=== PATIENT | male | born 1950 | race Caucasian/White ===

== ENCOUNTER 2021-07-18 06:11 | Day surgery (SDC) | payer MEDICARE, OTHER, SELFPAY ==
[2021-07-12 10:51] VITALS: BMI 32.3
--- NOTE | 2021-07-17 10:15 | P.CONAN_ITS ---
Documented by User: Mary Pool NP 07/17/21 10:15 HPI - Anesthesia Eval Consult details Narrative: 71yo M for ?Col[facility] Past Medical History Medical History Hernia Hyperlipidemia Surgical History Surgical History History of knee replacement, total Hx of colonoscopy Social History Social History Patient Tobacco Use Status: Never used Tobacco Are you DNR?: No Advance Directives: No Advance Directives Information Provided: Yes Meds Allergies Allergy/AdvReac Type Severity Reaction Status Date / Time No Known Allergies Allergy Verified 07/18/21 06:09 Home Medications Medication Instructions Recorded Confirmed Last Taken Type atorvastatin 10 mg 1 tab PO DAILY 07/12/21 07/12/21 Unknown History tablet Exam Exam Date and Time: July 17, 2021 1015 Height,Weight and Vital Signs: Height 5 ft 6 in Weight 90.718 kg Assessment and Plan Assessment Anesthesia Assessment: Chart Reviewed Documented by User: Vidya Orosco MD 07/18/21 07:25 [facility] Past Medical History Medical History Hernia Hyperlipidemia Functional capacity: independent ambulation Family History Family history of problems with anesthesia: No Surgical History Surgical History History of knee replacement, total Hx of colonoscopy History of Problems with Anesthesia: No Social History Social History Patient Tobacco Use Status: Never used Tobacco Are you DNR?: No Advance Directives: No Advance Directives Information Provided: Yes Meds Allergies Allergy/AdvReac Type Severity Reaction Status Date / Time No Known Allergies Allergy Verified 07/18/21 06:09 Home Medications Medication Instructions Recorded Confirmed Last Taken Type atorvastatin 10 mg 1 tab PO DAILY 07/12/21 07/12/21 Unknown History tablet Exam Airway Mallampati Class: II TM Dist: >3cm Neck ROM: Full Heart: RRR Lungs: CTA Assessment and Plan Final Anesthetic Review Family History of Problems with Anesthesia: No History of Problems with Anesthesia: No ASA Class: II Final Preanesthetic Review: No Changes in Pt Med Stat, Consent Obtained/Reviewed and Anes Risks/Benef Reviewed Patient Risk: Low Procedure Risk: Low Anesthetic Plan Anesthetic Plan: MAC: Disposition: Standard PACU
[2021-07-18 06:29] VITALS: BP 185/97; PULSE 65; RESP 18; TEMP 36.6; O2SAT 98
[2021-07-18] MEDS: Lactated Ringers 1,000 ML 100 ML IVCONT (06:50)
[2021-07-18 07:16] VITALS: BP 160/72
[2021-07-18 08:28] VITALS: BP 123/87; PULSE 75; RESP 16; TEMP 36.4; O2SAT 95
--- NOTE | 2021-07-18 08:30 | PM.OP ---
Brief Operative Note Date of Service: 07/18/21 Pre-op diagnosis: Screening Post-op diagnosis: other (Diverticulosis) Procedure: Colonoscopy to the cecum and TI Surgeon: Luther Farmer Anesthesia: MAC Was an Medical Record Librarians Teacher used for this Procedure?: No Estimated blood loss (mL): 0 Pathology: none sent Condition: stable Disposition: PACU
--- NOTE | 2021-07-18 08:52 | HO.POSTANES ---
Post Anesthesia Evaluation Post Anesthesia Evaluation Vital Signs: Vital Signs Temp Pulse Resp BP Pulse Ox 07/18/21 08:28 97.5 F 75 16 123/87 95 07/18/21 07:16 160/72 H 07/18/21 06:29 98 F 65 18 185/97 H 98 Anesthesia: Monitored Mental Status: Awake Pain Control: Satisfactory Nausea/Vomiting: None Hydration: Adequate Anesthesia-Related Issues: No Anes. Related Issues
--- NOTE | 2021-07-18 08:58 | OP_ITS ---
SURGEON: Luther Farmer MD INDICATIONS: The patient presents for evaluation of colorectal cancer screening. Full consent has been obtained from him for this, including risks of bleeding and perforation. PREOPERATIVE DIAGNOSIS: Colorectal cancer screening. POSTOPERATIVE DIAGNOSIS: PROCEDURE PERFORMED: Colonoscopy to cecum and terminal ileum. ESTIMATED BLOOD LOSS: COMPLICATIONS: ANESTHESIA: Preoperative medication used, monitored anesthesia care. ASSISTANTS: SPECIMENS: POSTOPERATIVE DIAGNOSES: Colorectal cancer screening, diverticulosis, and internal hemorrhoids. DESCRIPTION OF PROCEDURE: The patient was placed in the left lateral decubitus position. The digital rectal exam revealed no abnormalities. The Olympus video pediatric colonoscope was entered into the rectum and advanced easily to the cecum. Once in the cecum, I did identify normal-appearing cecal pouch with appendiceal orifice and a normal-appearing ileocecal valve. The terminal ileum was cannulated and appeared normal. The scope was withdrawn back in the colon. The entire cecum and ileocecal valve appeared normal. The scope was slowly withdrawn assessing all mucosal surfaces carefully. Preparation was excellent. I did not visualize any sign of polyps, colitis, or angiodysplasia. There was a moderate amount of sigmoid diverticulosis. In the rectum, the scope was retroflexed visualizing internal hemorrhoids, but no other pathology. The rectal mucosa appeared normal. The scope was straightened and withdrawn from the patient. He tolerated the procedure well and was returned to the recovery area in stable condition. IMPRESSION: 1. Diverticulosis. 2. Internal hemorrhoids. PLAN: Given his negative exam, 2 previously negative colonoscopies, and no first-degree relatives with colorectal cancer, I do not think he will need any further colonoscopies in the future since his next one would be due in 10 years and he would already be in his 80s at that point. As such, he will see me on a p.r.n. basis. MD LEXIE Izquierdo/RIAZ / [id number]
== END 2021-07-18 09:05 | disposition home or self-care (01) ==
PROVIDERS: PCP Internal Medicine; Visit Provider Internal Medicine
PROC: 0DJD8ZZ Inspection of Lower Intestinal Tract, Via Natural or Artificial Opening Endoscopic (ICD-10-PCS; CPT 45378; principal; 2021-07-18 07:30)
DX: Z12.11 Encounter for screening for malignant neoplasm of colon (principal); K57.30 Diverticulosis of large intestine without perforation or abscess without bleeding; K64.8 Other hemorrhoids; E78.5 Hyperlipidemia, unspecified; Z79.899 Other long term (current) drug therapy; Z96.653 Presence of artificial knee joint, bilateral
CPT/HCPCS: G0121

== ENCOUNTER 2021-12-31 10:27 | Outpatient (REF) | payer MEDICARE, OTHER, SELFPAY ==
[2021-12-31 11:01] LABS: COVID-19 Test Negative (Negative); IDNOW Serial# 16C4AD1C
== END 2021-12-31 10:28 | disposition home or self-care (01) ==
LOC: HO.LAB 10:27
PROVIDERS: Visit Provider Internal Medicine
DX: Z20.822 Contact with and (suspected) exposure to COVID-19 (principal)
CPT/HCPCS: 87635; C9803

== ENCOUNTER 2022-01-10 08:28 | Outpatient (REF) | payer MEDICARE, OTHER, SELFPAY ==
[2022-01-10 09:18] LABS: COVID-19 Test Negative (Negative); IDNOW Serial# 08D9AD1C
== END 2022-01-10 08:29 | disposition home or self-care (01) ==
LOC: HO.LAB 08:28
PROVIDERS: Visit Provider Internal Medicine
DX: Z20.822 Contact with and (suspected) exposure to COVID-19 (principal)
CPT/HCPCS: 87635; C9803

== ENCOUNTER 2022-09-28 07:00 | Observation (INO) | payer MEDICARE, OTHER, SELFPAY ==
--- NOTE | ~2022-09-28 | CT_ITS ---
EXAMINATION: CT ABDOMEN, AND PELVIS WITH AND WITHOUT INTRAVENOUS CONTRAST CLINICAL INFORMATION: Abdominal pain. Rectal bleeding. COMPARISON: None TECHNIQUE: Multidetector volumetric CT imaging of the abdomen, and pelvis was obtained before and after the administration of 80 mL of Omnipaque 350 intravenous contrast without immediate adverse reactions. Axial MIP volume rendering provided. Sagittal and coronal reformatted images were obtained. This CT examination was performed using dose optimization techniques as appropriate, variously including the following: *Automated exposure control *Adjustment of mA and/or kV according to patient size (this includes techniques or standardized protocols for targeted exams where dose is matched to indication/reason for exam; i.e. extremities or head) *Use of iterative reconstruction technique DLP: 1598 mGy-cm FINDINGS: LUNG BASES: The lung bases appear clear, with no evidence of inflammation or nodules. Significant coronary arterial calcification. Heart normal in size. No pericardial effusion. LIVER, GALLBLADDER, AND BILIARY TREE: Subcentimeter segment 4 benign simple hepatic cyst. The liver otherwise appears unremarkable in size, shape, and attenuation. No suspicious focal hepatic lesion or biliary ductal dilatation is appreciated. Unremarkable appearance of the gallbladder. PANCREAS: Unremarkable SPLEEN: Unremarkable ADRENAL GLANDS: Unremarkable KIDNEYS AND URETERS: The kidneys appear unremarkable in size, shape, and attenuation. No hydronephrosis, hydroureter, or calculi seen. BLADDER: Question mild muscular hypertrophy. GASTROINTESTINAL TRACT: Stomach appears unremarkable. Approximately 1.5 cm diverticulum involving the second portion of the duodenum, without evidence of associated inflammation. Question mild diffuse rectal wall thickening, mild induration of surrounding fat, and mild hypervascularity of the rectal mucosa. Extensive, diffuse colonic diverticulosis without evidence of diverticulitis. Normal-appearing distal ileum and vermiform appendix. ABDOMINAL WALL: No significant hernia is appreciated. LYMPH NODES: No evidence of adenopathy by size criteria. 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 PELVIC VISCERA: Mildly enlarged prostate. Prostatic fiduciary markers. OSSEOUS STRUCTURES: Degenerative changes of the spine. CT/CT gi bleed abd pel wo/w IVcon IMPRESSION: Question mild diffuse rectal wall thickening, mild induration of surrounding fat, and mild hypervascularity of the rectal mucosa. Cannot exclude proctitis. Extensive, diffuse colonic diverticulosis without evidence of diverticulitis. Mildly enlarged prostate. Prostatic fiduciary markers. Additional findings, as above.
[2022-09-28 07:30] VITALS: BP 170/85; PULSE 80; RESP 18; TEMP 36.1; O2SAT 98; BMI 31.4
--- NOTE | 2022-09-28 08:21 | ED.BACK ---
HPI - Back Pain/Injury General Chief Complaint: Back Pain/Injury Stated Complaint: pain lower back Time Seen by Provider: 09/28/22 08:10 Source: patient Mode of arrival: ambulatory Limitations: no limitations History of Present Illness HPI Narrative: 72 yo male with history of HTN, HLD, bladder cancer s/p radiation 10/05 at [facility] (12 weeks-Dr Garcia) here with complaints of right sided flank pain x 3 weeks worsening over the last few days. Pain radiates to right side. Has noticed associated BRB in stool. Stool is soft. Has had some intermittent urinary urgency, diff urinating and one episode of hematuria which is resolved. No associated fever, vomiting, abdominal pain. No AC therapy use. Has been taking high dose ibuprofen x 2 weeks d/t hand pain/swelling. Last colonoscopy was 07/[address] Farmer which showed diverticulosis, internal hemorrhoids. Related Data Home Medications Medication Instructions Recorded Confirmed atorvastatin 10 mg tablet 1 tab PO DAILY 07/12/21 09/28/22 amlodipine 5 mg-benazepril 10 mg 1 cap PO DAILY 04/10/22 09/28/22 capsule multivitamin 1 tab PO DAILY 09/28/22 09/28/22 Allergies Allergy/AdvReac Type Severity Reaction Status Date / Time No Known Allergies Allergy Verified 09/28/22 07:29 Review of Systems Review of Systems: Yes all other systems are reviewed and are negative Constitutional: Constitutional: Reports no additional constitutional complaints, Denies body ache(s), Denies chills, Denies fever(s), Denies headache(s) and Denies weakness Eyes: Eyes: Reports no additional eye complaints and Denies change in vision ENT: Reports system reviewed and no additional complaints, except as documented, Denies dizziness, Denies headache(s), Denies nasal congestion, Denies nasal discharge and Denies neck pain Cardiovascular: Cardiovascular: Reports no additional cardiovascular complaints, Denies chest pain, Denies leg edema and Denies dyspnea Respiratory: Respiratory: Reports no additional respiratory complaints, Denies cough and Denies dyspnea Gastrointestinal: Gastrointestinal: Reports no additional gastrointestinal complaints, Denies abdominal pain, Reports hematochezia, Denies coffee ground emesis, Denies constipation, Denies diarrhea, Denies nausea, Denies vomiting and Denies hematemesis Genitourinary: Genitourinary: Denies urinary incontinence Musculoskeletal: Musculoskeletal: Reports no additional musculoskeletal complaints, Reports back pain, Denies arthralgias, Denies joint swelling, Denies neck pain, Denies numbness and Denies tingling Integumentary/Breasts: Skin/Breast: Reports system reviewed and no additional complaints, except as docu and Denies rash Neurologic: Reports system reviewed and no additional complaints, except as documented, Denies Abnormal speech present, Denies dizziness, Denies headache(s), Denies numbness, Denies tingling and Denies weakness PMFSH Past Medical History Attestation statement: The following information was validated with the patient. Source: old records reviewed and nursing notes reviewed Medical History (Updated 09/28/22 @ 12:13 by JADEN Bains) Hernia HTN (hypertension) Hyperlipidemia Prostate cancer Surgical History History of knee replacement, total Hx of colonoscopy Social History Social History Alcohol intake: current Alcohol intake frequency: 0-2 drinks per day Alcohol type: wine Patient Tobacco Use Status: Never used Tobacco Smoked in Last 30 Days: No Use of substances other than those prescribed or required for medical reasons: No Advance Directives: No Advance Directives Information Provided: Yes Nutrition Risks: No Nutritional Risk Physical Exam Vital Signs: Vital Signs: Last Vital Signs Temp 97.0 F 09/28/22 07:30 Pulse 68 09/28/22 12:07 Resp 16 09/28/22 12:07 BP 158/90 H 09/28/22 12:07 Pulse Ox 97 09/28/22 12:07 O2 Del Method Room Air 09/28/22 12:07 BMI result Body Mass Index 31.4 Const: General: cooperative, healthy appearing, comfortable and no acute distress Orientation/consciousness: patient oriented x3 Limitations: no limitations HEENT: Head: Yes normal to inspection Ears: hearing grossly normal bilaterally General nose exam: Normal external nose present Face and sinus: Yes normal facial exam Mouth: Normal oral and palatal mucosa present Throat: Yes posterior oropharynx normal Eyes: General: appearance normal, both eyes and all related structures Pupils: Equal, round and reactive pupils present Neck: Neck: Yes normal visual inspection Chest: Chest palpation & inspection: normal inspection of the chest Resp: Effort & Inspection: normal respiratory effort Auscultation: clear to auscultation bilaterally Cardio: Rate: regular rate Rhythm: regular rhythm Peripheral pulses: Peripheral pulses 2+ throughout GI: Inspection: Yes normal to inspection Palpation (GI): Soft to palpation and nontender Auscultation: normal bowel sounds Rectal Exam - Male: Yes visual inspection normal and Yes heme positive stool (maroon stool) : General: Yes no CVA tenderness Back/Spine/Pelvis: Other: TTP to right fnank and right mid abdomen with no reboud or guarding Back: no CVA tenderness Thoracic/Lumbar Spine: thoracic and lumbar spine normal to inspection Skin: General skin exam: no rashes or lesions noted Neuro: General: patient oriented x3, no focal motor deficits and normal sensation to monofilament Cranial nerves: Yes Equal, round and reactive pupils present Cognition (Neuro): normal cognition Speech: No Abnormal speech present Gait exam (Neuro): Normal gait present Motor exam (neuro): 5/5 motor strength present throughout Extrem: General: Yes normal to inspection Course Course Course Narrative: CT shows?Question mild diffuse rectal wall thickening, mild induration of surrounding fat, and mild hypervascularity of the rectal mucosa. Cannot exclude proctitis. ? Extensive, diffuse colonic diverticulosis without evidence of diverticulitis. ? Mildly enlarged prostate. Prostatic fiduciary markers. ? -hemoglobin is 11.5. Hematocrit 35.2. No previous available for review. UA is negative for infection. Likely radiation proctitis. Will discuss with GI. Medications Administered Generic Name Dose Route Start Last Admin Trade Name Freq PRN Reason Stop Dose Admin Amlodipine Besylate 5 mg 09/28/22 12:07 09/28/22 12:09 Amlodipine Besylate 5 Mg Tablet PO Not Given DAILY CASTILLO Lidocaine 1 patch 09/28/22 12:15 09/28/22 12:19 Lidocaine 4 % Patch Adh..Patch TRANSDERMA 1 patch DAILY CASTILLO Administration Protocol Lisinopril 10 mg 09/28/22 12:07 09/28/22 12:09 Lisinopril 10 Mg Tablet PO Not Given DAILY CASTILLO Discontinued Medications Generic Name Dose Route Start Last Admin Trade Name Freq PRN Reason Stop Dose Admin Iohexol 100 ml 09/28/22 09:36 09/28/22 09:36 Iohexol 350 Mg/Ml 100 Ml Infus..Btl IV 09/28/22 09:37 80 ml ONCE ONE Administration Medical Decision Making Medical Decision Making [facility] Narrative: 72 yo male with history of prostate cancer with 12 weeks of radiation here with complaints of 3 weeks of right sided back pain, rectal bleeding, intermittent urinary symptoms. On exam patient with TTP over right flank/pain with radiation to right mid abdomen. Rectal exam with maroon stool. Will need labs, UA, CT, will send occult stool Differential Diagnosis Differential Diagnoses: The differential diagnosis associated with the presentation includes GIB, radiation proctitis, divert, hemorrhoids Admission/Observation Consideration of admission/observation: Escalation of care including admission/observation considered need for emergent colonoscopy requiring admission Consult Healthcare Provider Management of the patient was discussed with: Superintendent Laundry CT is consistent with proctitis. Likely radiation proctitis. D/w with Dr Judd from GI with plans for scope tomorrow Lab Data [facility] Lab Attestation statement: I reviewed the patient's lab results. 09/28/22 08:35 09/28/22 08:35 Labs: Lab Results 09/28/22 09/28/22 09/28/22 Range/Units 08:35 08:35 08:35 WBC 4.9 (4.8-10.8) X10*3/uL RBC 3.89 L (4.60-5.80) X10*6/uL Hgb 11.9 L (14.0-18.0) g/dl Hct 35.2 L (42.0-52.0) % MCV 90.5 (80.0-98.0) fL MCH 30.6 (27.0-33.0) pg MCHC 33.8 (31.0-36.0) g/dl RDW 12.4 (11.0-16.0) % Plt Count 174 (160-400) X10*3/uL MPV 9.2 L (9.4-12.4) fL Immature Gran % (Auto) 0.2 (0.0-0.4) % Neut % (Auto) 73.8 H (45-73) % Lymph % (Auto) 12.6 L (20-40) % [place]ner % (Auto) 10.9 (2-11) % Eos % (Auto) 1.9 (0-4) % Baso % (Auto) 0.6 (0-2) % Lymph # (Auto) 0.6 L (1.2-4.9) X10*3/uL [place]ner # (Auto) 0.5 (0.1-1.2) X10*3/uL Eos # (Auto) 0.1 (0.0-0.4) X10*3/uL Baso # (Auto) 0.0 (0.0-0.2) X10*3/uL Abs Immat Gran (auto) 0.01 (0.00-0.03) X10*3/uL Absolute Neuts (auto) 3.6 (2.0-8.3) x10*3/uL Absolute Nucleated RBC 0.000 (0.0-0.012) X10*3/uL Nucleated RBC % (auto) 0.0 (0.0-0.2) /100WBC PT 11.2 (10.0-13.1) SEC INR 1.0 (0.9-1.1) Sodium (135-145) mmol/L Potassium (3.3-5.1) mmol/L Chloride (96-108) mmol/L Carbon Dioxide (22-29) mmol/L Anion Gap (12-20) BUN (9-16) mg/dL Creatinine (0.5-1.4) mg/dL Estim Creat Clear Calc Estimated GFR Random Glucose (60-115) mg/dL Calcium (8.4-10.2) mg/dL Total Bilirubin (0.0-1.0) mg/dL Direct Bilirubin (0.0-0.5) mg/dL AST (5-37) U/L ALT (0-40) U/L Alkaline Phosphatase (39-117) U/L Total Protein (6.5-8.0) g/dL Albumin (3.5-5.0) g/dL Urine Color Urine Appearance Urine pH (5.0-9.0) Ur Specific [place] (1.005-1.025) Urine Protein (Neg-Trace) mg/dL Urine Glucose (UA) (Negative) mg/dL Urine Ketones (Negative) mg/dL Urine Blood (Negative) Urine Nitrite (Negative) Ur Leukocyte Esterase (Negative) Stool Occult Blood POSITIVE (NEGATIVE) COVID-19 (FRANKO) (Negative) COVID-19 Clin Com 09/28/22 09/28/22 09/28/22 Range/Units 08:35 09:34 10:39 WBC (4.8-10.8) X10*3/uL RBC (4.60-5.80) X10*6/uL Hgb (14.0-18.0) g/dl Hct (42.0-52.0) % MCV (80.0-98.0) fL MCH (27.0-33.0) pg MCHC (31.0-36.0) g/dl RDW (11.0-16.0) % Plt Count (160-400) X10*3/uL MPV (9.4-12.4) fL Immature Gran % (Auto) (0.0-0.4) % Neut % (Auto) (45-73) % Lymph % (Auto) (20-40) % Sumner % (Auto) (2-11) % Eos % (Auto) (0-4) % Baso % (Auto) (0-2) % Lymph # (Auto) (1.2-4.9) X10*3/uL [place]ner # (Auto) (0.1-1.2) X10*3/uL Eos # (Auto) (0.0-0.4) X10*3/uL Baso # (Auto) (0.0-0.2) X10*3/uL Abs Immat Gran (auto) (0.00-0.03) X10*3/uL Absolute Neuts (auto) (2.0-8.3) x10*3/uL Absolute Nucleated RBC (0.0-0.012) X10*3/uL Nucleated RBC % (auto) (0.0-0.2) /100WBC PT (10.0-13.1) SEC INR (0.9-1.1) Sodium 141 (135-145) mmol/L Potassium 4.0 (3.3-5.1) mmol/L Chloride 107 (96-108) mmol/L Carbon Dioxide 25 (22-29) mmol/L Anion Gap 13 (12-20) BUN 16 (9-16) mg/dL Creatinine 0.96 (0.5-1.4) mg/dL Estim Creat Clear Calc 71.4 Estimated GFR > 60 Random Glucose 120 H (60-115) mg/dL Calcium 9.5 (8.4-10.2) mg/dL Total Bilirubin 0.6 (0.0-1.0) mg/dL Direct Bilirubin 0.2 (0.0-0.5) mg/dL AST 19 (5-37) U/L ALT 17 (0-40) U/L Alkaline Phosphatase 83 (39-117) U/L Total Protein 6.5 (6.5-8.0) g/dL Albumin 4.2 (3.5-5.0) g/dL Urine Color Yellow Urine Appearance Clear Urine pH 7.5 (5.0-9.0) Ur Specific [place] <= 1.005 (1.005-1.025) Urine Protein Negative (Neg-Trace) mg/dL Urine Glucose (UA) Negative (Negative) mg/dL Urine Ketones Negative (Negative) mg/dL Urine Blood Negative (Negative) Urine Nitrite Negative (Negative) Ur Leukocyte Esterase Negative (Negative) Stool Occult Blood (NEGATIVE) COVID-19 (FRANKO) Negative (Negative) COVID-19 Clin Com See Note Independent Interpretation I performed an independent interpretation of an: CT Scan Interpretation: I independently reviewed the CT scan and agree with the radiologist's report Radiology Impression Discussion of test interpretation with radiology: I have reviewed the radiologist's reading. Radiologist Impression: [place] [id number] CT Scan Report Signed Patient: Jc Garcia MR#: [id number] : 1950 Acct:[id number] Age/Sex: 72 / M ADM Date: 09/28/22 Loc: .ED Attending Dr: Ordering Physician: Ashley Mendoza NP Date of Service: 09/28/22 Procedure(s): CT gi bleed abd pel wo/w IVcon Accession Number(s): [id number] cc: Ashley Mendoza NP~ EXAMINATION: CT ABDOMEN, AND PELVIS WITH AND WITHOUT INTRAVENOUS CONTRAST CLINICAL INFORMATION: Abdominal pain. Rectal bleeding.? COMPARISON: None? TECHNIQUE: Multidetector volumetric CT imaging of the abdomen, and pelvis was obtained before and after the administration of 80 mL of Omnipaque 350 intravenous contrast without immediate adverse reactions. Axial MIP volume rendering provided. Sagittal and coronal reformatted images were obtained. This CT examination was performed using dose optimization techniques as appropriate, variously including the following: *Automated exposure control *Adjustment of mA and/or kV according to patient size (this includes techniques or standardized protocols for targeted exams where dose is matched to indication/reason for exam; i.e. extremities or head) *Use of iterative reconstruction technique DLP: 1598 mGy-cm FINDINGS: LUNG BASES: The lung bases appear clear, with no evidence of inflammation or nodules. Significant coronary arterial calcification. Heart normal in size. No pericardial effusion. LIVER, GALLBLADDER, AND BILIARY TREE: Subcentimeter segment 4 benign simple hepatic cyst. The liver otherwise appears unremarkable in size, shape, and attenuation. No suspicious focal hepatic lesion or biliary ductal dilatation is appreciated. Unremarkable appearance of the gallbladder.? PANCREAS: Unremarkable? SPLEEN: Unremarkable? ADRENAL GLANDS: Unremarkable? KIDNEYS AND URETERS: The kidneys appear unremarkable in size, shape, and attenuation. No hydronephrosis, hydroureter, or calculi seen. ? BLADDER: Question mild muscular hypertrophy.? GASTROINTESTINAL TRACT: Stomach appears unremarkable. Approximately 1.5 cm diverticulum involving the second portion of the duodenum, without evidence of associated inflammation. Question mild diffuse rectal wall thickening, mild induration of surrounding fat, and mild hypervascularity of the rectal mucosa. Extensive, diffuse colonic diverticulosis without evidence of diverticulitis. Normal-appearing distal ileum and vermiform appendix. ABDOMINAL WALL: No significant hernia is appreciated.? LYMPH NODES: No evidence of adenopathy by size criteria. 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 PELVIC VISCERA: Mildly enlarged prostate. Prostatic fiduciary markers. OSSEOUS STRUCTURES: Degenerative changes of the spine.? CT/CT gi bleed abd pel wo/w IVcon IMPRESSION: ? Question mild diffuse rectal wall thickening, mild induration of surrounding fat, and mild hypervascularity of the rectal mucosa. Cannot exclude proctitis. ? Extensive, diffuse colonic diverticulosis without evidence of diverticulitis. ? Mildly enlarged prostate. Prostatic fiduciary markers. ? Additional findings, as above. Discharge Plan Discharge Clinical Impression: Rectal bleeding, Acute proctitis Patient Disposition: Admitted As Inpatient
[2022-09-28 08:40] LABS: MANUAL DIFF FLAG NO
[2022-09-28 08:42] LABS: OBS Int Ctl Valid YES; OBS1 POSITIVE (NEGATIVE)
[2022-09-28 08:43] LABS: Basophils Percent Auto 0.6 % (0-2); Eosinophils Absolute Auto 0.1 X10*3/uL (0.0-0.4); Eosinophils Percent Auto 1.9 % (0-4); Hematocrit 35.2 % (42.0-52.0); Hemoglobin 11.9 g/dl (14.0-18.0); Imm Gran Abs Auto 0.01 X10*3/uL (0.00-0.03); Imm Gran Pct Auto 0.2 % (0.0-0.4); Lymphocytes Absolute Auto 0.6 X10*3/uL (1.2-4.9); Lymphocytes Percent Auto 12.6 % (20-40); Mean Corpuscular HGB Conc 33.8 g/dl (31.0-36.0); Mean Corpuscular Hemoglobin 30.6 pg (27.0-33.0); Mean Corpuscular Volume 90.5 fL (80.0-98.0); Mean Platelet Volume 9.2 fL (9.4-12.4); Monocytes Absolute Auto 0.5 X10*3/uL (0.1-1.2); Monocytes Percent Auto 10.9 % (2-11); Neutrophils Absolute Auto 3.6 x10*3/uL (2.0-8.3); Neutrophils Percent Auto 73.8 % (45-73); Platelet Count 174 X10*3/uL (160-400); Red Blood Count 3.89 X10*6/uL (4.60-5.80); Red Cell Distribution Width 12.4 % (11.0-16.0); White Blood Count 4.9 X10*3/uL (4.8-10.8)
[2022-09-28 08:46] LABS: Prothrombin Time 11.2 SEC (10.0-13.1)
[2022-09-28 09:02] LABS: Alanine Aminotransferase 17 U/L (0-40); Albumin Level 4.2 g/dL (3.5-5.0); Alkaline Phosphatase 83 U/L (39-117); Anion Gap 13 (12-20); Aspartate Amino Transferase 19 U/L (5-37); Bilirubin Direct 0.2 mg/dL (0.0-0.5); Bilirubin Total 0.6 mg/dL (0.0-1.0); Blood Urea Nitrogen 16 mg/dL (9-16); Calcium 9.5 mg/dL (8.4-10.2); Carbon Dioxide 25 mmol/L (22-29); Chloride 107 mmol/L (96-108); Creatinine Clr Calc Pharmacy 71.4; Estimated Glomerular Filt Rate > 60; Glucose Random 120 mg/dL (60-115); Sodium 141 mmol/L (135-145); Total Protein 6.5 g/dL (6.5-8.0)
[2022-09-28] MEDS: iohexoL 350 MG/ML 100 ML INFUS..BTL IV (09:36)
[2022-09-28 09:43] LABS: Appearance Urine Clear; Color Urine Yellow; Glucose Urine UA Negative (Negative); Leukocyte Esterase Urine Negative (Negative); Nitrite Urine Negative (Negative); PH 7.5 (5.0-9.0); Specific Gravity - Urine <= 1.005 (1.005-1.025); Urine Blood Negative (Negative); Urine Ketones Negative (Negative); Urine Protein Negative (Neg-Trace)
[2022-09-28 09:53] VITALS: BP 158/84; PULSE 57; RESP 16; O2SAT 96
[2022-09-28 11:00] LABS: COVID-19 Test Negative (Negative); IDNOW Serial# BCCEAD1C
--- NOTE | 2022-09-28 11:48 | PHA.MEDREC ---
Addendum entered by Kathleen Chris RPh 09/28/22 11:51: REVIEWED BY [facility] Original Note: Pharmacy Consult ? Medication Reconciliation Pharmacy has completed the medication reconciliation. spoke with patient. Took his medications this morning.
--- NOTE | 2022-09-28 11:55 | P.HPHOSP_ITS ---
History of Present Illness Date of Service: 09/28/22 Attending physician on admission: [facility] Chief Complaint: BRBPR 72-year-old male with history of hyperlipidemia, hypertension, and history of prostate cancer treated with radiation x8 weeks in 09/2021 presenting to the ED for evaluation of severe right flank pain ongoing for 3 weeks. States the pain was initially intermittent but has now become more constant and worsens with movement. At rest, pain is about a 4 /10, but with movement it is a 9/10. Denies any rash. He states at onset of pain, he also began experiencing bright red blood per rectum. States initially was experiencing gerry blood but now notes maroon stool and blood tinged water in the toilet. He did have colonoscopy in 07/2021 which was negative except for internal hemorrhoids and diverticulosis. He states he saw his urologist and oncologist who feel the pain and blood could be related to radiation proctitis. He reports bowel movements are soft. Denies any fevers, chills, abdominal pain, nausea, vomiting, diarrhea, constipation, straining, rectal pain/ pressure, or tenesmus. On arrival, patient hypertensive to 170/85, improved to 158/84, vitals otherwise normal. No leukocytosis. H/ H 11.9/35.2% (4/6 at [facility] H/H 12.7/38.7%). renal function and electrolyte levels normal. Urinalysis unremarkable. Stool occult blood positive. CT abdomen/ pelvis showing question of mild diffuse rectal wall thickening, mild induration of surrounding fat, and mild hypervascularity of the rectal mucosa. Cannot exclude proctitis. There was also extensive, diffuse colonic diverticulosis without evidence of diverticulitis and mildly enlarged prostate with prostatic fiduciary markers. ED provider discussed case with gastroenterology who is recommending admission with colonoscopy tomorrow. Review of Systems Review of Systems: General: No fevers, malaise, unintentional weight loss HEENT: No blurred vision, diplopia. No sore throat, nasal congestion, rhinorrhea, sinus pain, ear pain Cardiovascular: No chest pain, palpitations, or leg edema Respiratory: No shortness of breath, wheezing, cough GI: +BRBPR. No abdominal pain, nausea, vomiting, diarrhea, constipation, melena, rectal pain/pressure, tenesmus : No dysuria, hematuria, increased urinary frequency, decreased urinary output MSK: No myalgia, back pain Neuro: No headaches, weakness, paresthesias Skin: No rashes or lesions [facility] Medical History (Updated 09/28/22 @ 12:13 by JADEN Bains) Hernia HTN (hypertension) Hyperlipidemia Prostate cancer Surgical History History of knee replacement, total Hx of colonoscopy Social History Alcohol intake: current Alcohol intake frequency: 0-2 drinks per day Alcohol type: wine Patient Tobacco Use Status: Never used Tobacco Meds Allergies Allergy/AdvReac Type Severity Reaction Status Date / Time No Known Allergies Allergy Verified 09/28/22 07:29 Active Medications: Current Medications Pharmacy Consult (Consult Rx Perform Med Rec) 1 each MISCELLANE ONCE PRN PRN Reason: Consult order Home Medications Medication Instructions Recorded Confirmed Last Taken Type atorvastatin 10 mg tablet 1 tab PO DAILY 07/12/21 09/28/22 09/28/22 History amlodipine 5 mg-benazepril 10 mg 1 cap PO DAILY 04/10/22 09/28/22 09/28/22 History capsule multivitamin 1 tab PO DAILY 09/28/22 09/28/22 09/28/22 History Physical Exam Vital Signs and Narrative: Vital Signs: Last Vital Signs Temp 97.0 F 09/28/22 07:30 Pulse 57 09/28/22 09:53 Resp 16 09/28/22 09:53 BP 158/84 H 09/28/22 09:53 Pulse Ox 96 09/28/22 09:53 O2 Del Method Room Air 09/28/22 09:53 BMI result Body Mass Index 31.4 Constitutional - Awake and Alert, No apparent distress Eyes - PERRLA, EOMI Cardiovascular - S1S2, RRR, No edema Respiratory - Normal lung expansion, Normal respiratory effort, No respiratory distress, CTA bilaterally Gastrointestinal - NT / ND; +BS; No rebound or guarding Extremities - no calf tenderness bilaterally, no swelling Musculoskeletal - Normal inspection, normal ROM. No midline or paraspinal ttp Skin - Warm/Dry. No rash Neurological - Alert & oriented x3, CN II-XII in tact, 5/ strength BUE and BLE Psychological - Appropriate affect Results Labs 09/28/22 08:35 09/28/22 08:35 Labs: Laboratory Results - last 24 hr 09/28/22 09/28/22 09/28/22 08:35 08:35 08:35 MCV 90.5 MCH 30.6 MCHC 33.8 RDW 12.4 Plt Count 174 MPV 9.2 L Immature Gran % (Auto) 0.2 Neut % (Auto) 73.8 H Lymph % (Auto) 12.6 L [place] % (Auto) 10.9 Eos % (Auto) 1.9 Baso % (Auto) 0.6 Lymph # (Auto) 0.6 L [place] # (Auto) 0.5 Eos # (Auto) 0.1 Baso # (Auto) 0.0 Abs Immat Gran (auto) 0.01 Absolute Neuts (auto) 3.6 Absolute Nucleated RBC 0.000 Nucleated RBC % (auto) 0.0 PT 11.2 INR 1.0 Anion Gap Estim Creat Clear Calc Estimated GFR Random Glucose Calcium Total Bilirubin Direct Bilirubin AST ALT Alkaline Phosphatase Total Protein Albumin Urine Color Urine Appearance Urine pH Ur Specific [place] Urine Protein Urine Glucose (UA) Urine Ketones Urine Blood Urine Nitrite Ur Leukocyte Esterase Stool Occult Blood POSITIVE COVID-19 (FRANKO) COVID-19 [employer] Com 09/28/22 09/28/22 09/28/22 08:35 09:34 10:39 MCV MCH MCHC RDW Plt Count MPV Immature Gran % (Auto) Neut % (Auto) Lymph % (Auto) [place] % (Auto) Eos % (Auto) Baso % (Auto) Lymph # (Auto) [place] # (Auto) Eos # (Auto) Baso # (Auto) Abs Immat Gran (auto) Absolute Neuts (auto) Absolute Nucleated RBC Nucleated RBC % (auto) PT INR Anion Gap 13 Estim Creat Clear Calc 71.4 Estimated GFR > 60 Random Glucose 120 H Calcium 9.5 Total Bilirubin 0.6 Direct Bilirubin 0.2 AST 19 ALT 17 Alkaline Phosphatase 83 Total Protein 6.5 Albumin 4.2 Urine Color Yellow Urine Appearance Clear Urine pH 7.5 Ur Specific [place] <= 1.005 Urine Protein Negative Urine Glucose (UA) Negative Urine Ketones Negative Urine Blood Negative Urine Nitrite Negative Ur Leukocyte Esterase Negative Stool Occult Blood COVID-19 (FRANKO) Negative COVID-19 Clin Com See Note Imaging Radiologist's Impressions: Impressions Abdomen/Pelvis CT 09/28/22 09:44 IMPRESSION: Question mild diffuse rectal wall thickening, mild induration of surrounding fat, and mild hypervascularity of the rectal mucosa. Cannot exclude proctitis. Extensive, diffuse colonic diverticulosis without evidence of diverticulitis. Mildly enlarged prostate. Prostatic fiduciary markers. Additional findings, as above. Assessment and Plan (1) Acute radiation proctitis: Status: Acute Plan 72-year-old male with history of hyperlipidemia, hypertension, and history of prostate cancer treated with radiation x8 weeks in 09/2021 to be observed for radiation proctitis. #BRBPR with right flank pain- suspect acute radiation proctitis -hx prostate cancer treated with 40 session radiation 09/2021 -H/H stable at 11.9/ 35.2- above transfusion threshold -Stool occult blood positive -CT abdomen/ pelvis showing question of mild diffuse rectal wall thickening, mild induration of surrounding fat, and mild hypervascularity of the rectal mucosa. Cannot exclude proctitis. -Appreciate GI input -Colonoscopy tomorrow per GI- clear liquid diet now and initiate prep later today. NPO after midnight -Lidocaine patch for right flank pain. Consider gabapentin if needed -Follow CBC #HTN-reasonably controlled -Continue home meds #HLD -continue statin DVT prophylaxis- SCPs Full code Time Spent With Patient Time: Total time managing care of this patient today ____ minutes. Quality Stroke Does the patient have a stroke diagnosis?: No VTE Prior VTE?: No VTE Risk Level:: Medical - moderate - high VTE Device Contraindication: N/A - Device Ordered VTE Drug Contraindication: Treatment Not Indicated
[2022-09-28 12:07] VITALS: BP 158/90; PULSE 68; RESP 16; O2SAT 97
[2022-09-28] MEDS: Lidocaine 4 % Patch ADH..PATCH 1 PATCH TRANSDERMA (12:19)
[2022-09-28 14:35] VITALS: BMI 30.5
--- NOTE | 2022-09-28 14:39 | P.CNGI_ITS ---
History of Present Illness Data of Consult Service Date: 09/28/22 Requesting physician: Rehana Rodrigues Primary Care Provider: Farhad Delacruz MD HPI Reason for consult: rectal bleeding 72-year-old male with history of hyperlipidemia, hypertension, and prostate cancer (s/p implanted radiation beads 09/2021) who I am seeing for assessment for rectal bleeding. He has noted 2-4 weeks of formed stools mixed with blood as well as episodic bouts of spurting of pure blood from the rectum. He also noted worsening lower back pain /10 without radiation but worse with movement and pressure in the r ectum. He denies nausea or vomiting, no weight loss, has good appetite, denies fevers or chills. He does drink wine once a day, he has also been taking ibuprofen 800 mg tid for 2 wks for left wrist pain. He did have colonoscopy in 07/2021 which was negative except for internal hemorrhoids and diverticulosis Labs: No leukocytosis.? H/ H 11.9/35.2% (/ at [facility] H/H? 12.7/38.7%).? renal function ? and electrolyte levels normal.? Urinalysis unremarkable.? Stool occult? blood positive Imaging: CT abdomen/ pelvis with question of mild diffuse rectal wall thickening, mild induration of surrounding fat, and mild hypervascularity of the rectal mucosa.? There was also extensive, diffuse colonic diverticulosis without evidence of diverticulitis and mildly enlarged prostate with prostatic fiduciary markers Review of Systems Review of Systems: Constitutional : No Weight loss, No Fever, No Chills ENT/Mouth : No sore throat, No Rhinorrhea Eyes: No Swelling, No Redness Cardiovascular : No Chest Pain, No SOB, No Edema Respiratory : No Cough, No Sputum, No Wheezing Gastrointestinal : see HPI Genitourinary : NO Dysuria, No Urinary Frequency, No Hematuria, No Urgency, +hesitancy Musculoskeletal :+ joint pain, No Myalgias, No Joint Swelling Skin : No Skin Lesions, No rash Neuro : No Weakness, No Numbness, No Dizziness, No Headache Psych : No Anxiety/Panic, No Depression Heme/Lymph: No Bruising, No Lymphadenopathy Endocrine : No Polyuria, No Polydipsia All other systems reviewed and are negative. [facility] Past Medical History Medical History (Updated 09/28/22 @ 12:13 by JADEN Bains) Hernia HTN (hypertension) Hyperlipidemia Prostate cancer Family History Pertinent family history: No FH of CRC, IBD Surgical History Surgical History History of knee replacement, total Hx of colonoscopy Social History Social History Household Members: Spouse Housing: House Do you presently have visiting nurse or other home services: No Alcohol intake: current Alcohol intake frequency: 0-2 drinks per day Alcohol type: wine Patient Tobacco Use Status: Never used Tobacco Smoked in Last 30 Days: No Use of substances other than those prescribed or required for medical reasons: No Have you been hit, kicked, punched, or otherwise hurt by someone within the past year? If so, by whom?: No Do you feel safe in your current relationship?: No Is there a partner from a previous relationship who is making you feel unsafe now?: No Are you made to feel afraid or neglected: No Advance Directives: No Advance Directives Information Provided: Yes Recently lost weight without trying: No Eating poorly because of decreased appetite: No Nutrition Risks: No Nutritional Risk Poor oral hygiene: No Meds Allergies Allergy/AdvReac Type Severity Reaction Status Date / Time No Known Allergies Allergy Verified 09/28/22 07:29 Active Medications: Current Medications Acetaminophen (Acetaminophen 325 Mg Tablet) 650 mg PO Q6H PRN PRN Reason: Pain, Mild (Pain Scale 1-3) Amlodipine Besylate (Amlodipine Besylate 5 Mg Tablet) 5 mg PO DAILY [facility] Last Admin: 09/28/22 12:09 Dose: Not Given Atorvastatin Calcium (Atorvastatin Calcium 10 Mg Tablet) 10 mg PO DAILY [facility] Docusate Sodium (Docusate Sodium 100 Mg Capsule) 100 mg PO DAILY PRN PRN Reason: Constipation Lidocaine (Lidocaine 4 % Patch Adh..Patch) 1 patch TRANSDERMA DAILY [facility]; Protocol Last Admin: 09/28/22 12:19 Dose: 1 patch Lisinopril (Lisinopril 10 Mg Tablet) 10 mg PO DAILY [facility] Last Admin: 09/28/22 12:09 Dose: Not Given Multivitamins/Vitamin C (Multivitamin Tablet) 1 tab PO DAILY [facility] Ondansetron HCl (Ondansetron Hcl 4 Mg/2 Ml Vial) 4 mg IVPUSH Q8H PRN PRN Reason: Nausea and Vomiting Pharmacy Consult (Consult Rx Perform Med Rec) 1 each MISCELLANE ONCE PRN PRN Reason: Consult order Polyethylene Glycol/Electrolytes (Peg 3350/Na Sulf,Bicarb,Cl/Kcl 4,000 Ml Soln.Recon) 4,000 ml PO ONCE@1800 [facility] Stop: 09/28/22 18:01 Sodium Chloride (0.9 % Sodium Chloride Flush 3 Ml Syringe) 3 ml IVFLUSH QSHIFT [facility] Home Medications Medication Instructions Recorded Confirmed Last Taken Type atorvastatin 10 mg tablet 1 tab PO DAILY 07/12/21 09/28/22 09/28/22 History amlodipine 5 mg-benazepril 10 mg 1 cap PO DAILY 04/10/22 09/28/22 09/28/22 History capsule multivitamin 1 tab PO DAILY 09/28/22 09/28/22 09/28/22 History Physical Exam Vital Signs: Vital Signs: Last Vital Signs Temp 97.0 F 09/28/22 07:30 Pulse 68 09/28/22 12:07 Resp 16 09/28/22 12:07 BP 158/90 H 09/28/22 12:07 Pulse Ox 97 09/28/22 12:07 O2 Del Method Room Air 09/28/22 12:07 BMI result Body Mass Index 30.5 EXAM: GENERAL: The patient is well developed and nontoxic. VITAL SIGNS:see workflow HEENT: Nonicteric sclerae, PERRLA, EOMI. Oropharynx clear. Moist mucous membranes. Conjunctivae appear well perfused. No thyroid mass. CHEST: Chest wall is nontender. HEART: Regular rate and rhythm without murmurs. LUNGS: Clear to auscultation bilaterally. ABDOMEN: Soft, positive bowel sounds, nontender, no organomegaly.no flank tenderness SKIN: No rash, no excessive bruising, petechiae, or purpura. NEUROLOGIC: Cranial nerves II-XII intact without motor/sensory deficit. psych-nml affect Results Labs 09/28/22 08:35 09/28/22 08:35 Labs: Short CBC 09/28/22 Range/Units 08:35 WBC 4.9 (4.8-10.8) X10*3/uL Hgb 11.9 L (14.0-18.0) g/dl Hct 35.2 L (42.0-52.0) % Plt Count 174 (160-400) X10*3/uL BMP 09/28/22 08:35 Sodium 141 Potassium 4.0 Chloride 107 Carbon Dioxide 25 BUN 16 Creatinine 0.96 Calcium 9.5 Liver Function 09/28/22 Range/Units 08:35 Total Bilirubin 0.6 (0.0-1.0) mg/dL Direct Bilirubin 0.2 (0.0-0.5) mg/dL AST 19 (5-37) U/L ALT 17 (0-40) U/L Alkaline Phosphatase 83 (39-117) U/L Albumin 4.2 (3.5-5.0) g/dL Urine 09/28/22 Range/Units 09:34 Urine Color Yellow Urine Appearance Clear Urine pH 7.5 (5.0-9.0) Ur Specific [place] <= 1.005 (1.005-1.025) Urine Protein Negative (Neg-Trace) mg/dL Urine Glucose (UA) Negative (Negative) mg/dL Imaging CT scan - abdomen: Attestation: I personally reviewed and interpreted this imaging study as follows: (thickened rectum with stranding of soft tissue, spinal degen lower back, with osteophytes and loss of vol of discs) Assessment and Plan (1) Rectal bleeding: Status: Acute Plan 1/ Rectal bleeding 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 ddx; neoplasia, infectious proctitis PLAN: 1/ clears today, colyte tonight at around 7 pm and colonodcopy tomorrow for further my assessment 2/ avoid nsaids, can use tylenol for pain 3/ check iron and ferritin, b12, folate Time Spent With Patient Time: Total time managing care of this patient today ____ minutes. Procedures Date of Service Date of Service: 09/28/22
[2022-09-28 14:43] VITALS: BP 154/80; PULSE 62; RESP 18; TEMP 36.7; O2SAT 94
[2022-09-28] MEDS: 0.9 % Sodium Chloride Flush 3 ML SYRINGE IVFLUSH ×2 (17:28→20:13)
[2022-09-28] MEDS: PEG 3350/Na Sulf,Bicarb,Cl/KCL 4,000 ML SOLN.RECON 4000 ML PO (17:29)
[2022-09-28 19:36] VITALS: BP 170/84; PULSE 63; RESP 16; TEMP 36.6; O2SAT 98
[2022-09-28 23:15] LABS: Iron 102 mcg/dL (45-160); Percent Iron Saturation 36 % (15-50); Total Iron Binding Capacity 280 mcg/dL (228-428); Unsaturated Iron Binding 178 ug/dL
[2022-09-28 23:42] LABS: Ferritin 125 ng/mL (20-250); Vitamin B12 408 pg/mL (200-900)
[2022-09-29 03:48] VITALS: BP 141/78; PULSE 60; RESP 16; TEMP 36; O2SAT 98
[2022-09-29 06:17] LABS: MANUAL DIFF FLAG NO
[2022-09-29 06:30] LABS: Basophils Percent Auto 0.4 % (0-2); Eosinophils Absolute Auto 0.2 X10*3/uL (0.0-0.4); Eosinophils Percent Auto 3.6 % (0-4); Hematocrit 32.1 % (42.0-52.0); Hemoglobin 11.1 g/dl (14.0-18.0); Imm Gran Abs Auto 0.01 X10*3/uL (0.00-0.03); Imm Gran Pct Auto 0.2 % (0.0-0.4); Lymphocytes Absolute Auto 0.6 X10*3/uL (1.2-4.9); Lymphocytes Percent Auto 13.4 % (20-40); Mean Corpuscular HGB Conc 34.6 g/dl (31.0-36.0); Mean Corpuscular Hemoglobin 31.4 pg (27.0-33.0); Mean Corpuscular Volume 90.9 fL (80.0-98.0); Mean Platelet Volume 9.7 fL (9.4-12.4); Monocytes Absolute Auto 0.6 X10*3/uL (0.1-1.2); Monocytes Percent Auto 13.6 % (2-11); Neutrophils Absolute Auto 3.1 x10*3/uL (2.0-8.3); Neutrophils Percent Auto 68.8 % (45-73); Platelet Count 152 X10*3/uL (160-400); Red Blood Count 3.53 X10*6/uL (4.60-5.80); Red Cell Distribution Width 12.6 % (11.0-16.0); White Blood Count 4.5 X10*3/uL (4.8-10.8)
[2022-09-29 06:53] LABS: Anion Gap 12 (12-20); Blood Urea Nitrogen 11 mg/dL (9-16); Calcium 9.3 mg/dL (8.4-10.2); Carbon Dioxide 31 mmol/L (22-29); Chloride 106 mmol/L (96-108); Creatinine Clr Calc Pharmacy 71.1; Estimated Glomerular Filt Rate > 60; Glucose Random 102 mg/dL (60-115); Sodium 145 mmol/L (135-145)
[2022-09-29 07:59] VITALS: BP 154/84; PULSE 55; RESP 18; TEMP 36.6; O2SAT 96
--- NOTE | 2022-09-29 08:48 | P.CONAN_ITS ---
HPI - Anesthesia Eval Consult details Narrative: rectal bleeding PMFSH Active Problems Active Problems: All Active Problems (Updated 09/28/22 @ 12:13 by JADEN Bains) Acute radiation proctitis (Acute) Rectal bleeding (Acute) Superficial burn of left forearm (Acute) Past Medical History Medical History (Updated 09/28/22 @ 12:13 by JADEN Bains) Hernia HTN (hypertension) Hyperlipidemia Prostate cancer Family History Family history of problems with anesthesia: No Surgical History Surgical History History of knee replacement, total Hx of colonoscopy History of Problems with Anesthesia: No Social History Social History Household Members: Spouse Housing: House Do you presently have visiting nurse or other home services: No Alcohol intake: current Alcohol intake frequency: 0-2 drinks per day Alcohol type: wine Patient Tobacco Use Status: Never used Tobacco Smoked in Last 30 Days: No Use of substances other than those prescribed or required for medical reasons: No Currently Displaying Signs/Symptoms of Drug Intoxication Withdrawal: No Have you been hit, kicked, punched, or otherwise hurt by someone within the past year? If so, by whom?: No Do you feel safe in your current relationship?: No Is there a partner from a previous relationship who is making you feel unsafe now?: No Are you made to feel afraid or neglected: No Advance Directives: No Advance Directives Information Provided: Yes Recently lost weight without trying: No Eating poorly because of decreased appetite: No Nutrition Risks: No Nutritional Risk Poor oral hygiene: No Meds Allergies Allergy/AdvReac Type Severity Reaction Status Date / Time No Known Allergies Allergy Verified 09/28/22 07:29 Active Medications: Current Medications Acetaminophen (Acetaminophen 325 Mg Tablet) 650 mg PO Q6H PRN PRN Reason: Pain, Mild (Pain Scale 1-3) Amlodipine Besylate (Amlodipine Besylate 5 Mg Tablet) 5 mg PO DAILY [facility] Last Admin: 09/29/22 08:32 Dose: Not Given Atorvastatin Calcium (Atorvastatin Calcium 10 Mg Tablet) 10 mg PO DAILY [facility] Last Admin: 09/29/22 08:32 Dose: Not Given Docusate Sodium (Docusate Sodium 100 Mg Capsule) 100 mg PO DAILY PRN PRN Reason: Constipation Lidocaine (Lidocaine 4 % Patch Adh..Patch) 1 patch TRANSDERMA DAILY [facility]; Protocol Last Admin: 09/29/22 08:20 Dose: Not Given Lisinopril (Lisinopril 10 Mg Tablet) 10 mg PO DAILY [facility] Last Admin: 09/29/22 08:32 Dose: Not Given Multivitamins/Vitamin C (Multivitamin Tablet) 1 tab PO DAILY [facility] Last Admin: 09/29/22 08:20 Dose: Not Given Ondansetron HCl (Ondansetron Hcl 4 Mg/2 Ml Vial) 4 mg IVPUSH Q8H PRN PRN Reason: Nausea and Vomiting Pharmacy Consult (Consult Rx Perform Med Rec) 1 each MISCELLANE ONCE PRN PRN Reason: Consult order Sodium Chloride (0.9 % Sodium Chloride Flush 3 Ml Syringe) 3 ml IVFLUSH QSHIFT [facility] Last Admin: 09/29/22 07:14 Dose: Not Given Home Medications Medication Instructions Recorded Confirmed Last Taken Type atorvastatin 10 mg tablet 1 tab PO DAILY 07/12/21 09/28/22 09/28/22 History amlodipine 5 mg-benazepril 10 mg 1 cap PO DAILY 04/10/22 09/28/22 09/28/22 History capsule multivitamin 1 tab PO DAILY 09/28/22 09/28/22 09/28/22 History Exam Exam Date and Time: September 29, 2022 0848 Height,Weight and Vital Signs: Height 5 ft 6 in Weight 85.8 kg Last Vital Signs Temp 97.9 F 09/29/22 07:59 Pulse 55 09/29/22 07:59 Resp 18 09/29/22 07:59 BP 154/84 H 09/29/22 07:59 Pulse Ox 96 09/29/22 07:59 O2 Del Method Room Air 09/29/22 07:59 Pertinent Lab Results Pertinent Lab Results: Laboratory Tests 09/28/22 09/28/22 09/28/22 08:35 08:35 08:35 WBC 4.9 RBC 3.89 L Hgb 11.9 L Hct 35.2 L MCV 90.5 MCH 30.6 MCHC 33.8 RDW 12.4 Plt Count 174 MPV 9.2 L Immature Gran % (Auto) 0.2 Neut % (Auto) 73.8 H Lymph % (Auto) 12.6 L [place] % (Auto) 10.9 Eos % (Auto) 1.9 Baso % (Auto) 0.6 Lymph # (Auto) 0.6 L [place] # (Auto) 0.5 Eos # (Auto) 0.1 Baso # (Auto) 0.0 Abs Immat Gran (auto) 0.01 Absolute Neuts (auto) 3.6 Absolute Nucleated RBC 0.000 Nucleated RBC % (auto) 0.0 PT 11.2 INR 1.0 Sodium Potassium Chloride Carbon Dioxide Anion Gap BUN Creatinine Estim Creat Clear Calc Estimated GFR Random Glucose Calcium Iron TIBC % Saturation Unsat Iron Binding Ferritin Total Bilirubin Direct Bilirubin AST ALT Alkaline Phosphatase Total Protein Albumin Vitamin B12 Urine Color Urine Appearance Urine pH Ur Specific [place] Urine Protein Urine Glucose (UA) Urine Ketones Urine Blood Urine Nitrite Ur Leukocyte Esterase Stool Occult Blood POSITIVE COVID-19 (FRANKO) COVID-19 Clin Com 09/28/22 09/28/22 09/28/22 08:35 09:34 10:39 WBC RBC Hgb Hct MCV MCH MCHC RDW Plt Count MPV Immature Gran % (Auto) Neut % (Auto) Lymph % (Auto) [place] % (Auto) Eos % (Auto) Baso % (Auto) Lymph # (Auto) [place] # (Auto) Eos # (Auto) Baso # (Auto) Abs Immat Gran (auto) Absolute Neuts (auto) Absolute Nucleated RBC Nucleated RBC % (auto) PT INR Sodium 141 Potassium 4.0 Chloride 107 Carbon Dioxide 25 Anion Gap 13 BUN 16 Creatinine 0.96 Estim Creat Clear Calc 71.4 Estimated GFR > 60 Random Glucose 120 H Calcium 9.5 Iron 102 TIBC 280 % Saturation 36 Unsat Iron Binding 178 Ferritin 125 Total Bilirubin 0.6 Direct Bilirubin 0.2 AST 19 ALT 17 Alkaline Phosphatase 83 Total Protein 6.5 Albumin 4.2 Vitamin B12 408 Urine Color Yellow Urine Appearance Clear Urine pH 7.5 Ur Specific [place] <= 1.005 Urine Protein Negative Urine Glucose (UA) Negative Urine Ketones Negative Urine Blood Negative Urine Nitrite Negative Ur Leukocyte Esterase Negative Stool Occult Blood COVID-19 (FRANKO) Negative COVID-19 Clin Com See Note 09/29/22 09/29/22 05:44 05:44 WBC 4.5 L RBC 3.53 L Hgb 11.1 L Hct 32.1 L MCV 90.9 MCH 31.4 MCHC 34.6 RDW 12.6 Plt Count 152 L MPV 9.7 Immature Gran % (Auto) 0.2 Neut % (Auto) 68.8 Lymph % (Auto) 13.4 L [place] % (Auto) 13.6 H Eos % (Auto) 3.6 Baso % (Auto) 0.4 Lymph # (Auto) 0.6 L [place] # (Auto) 0.6 Eos # (Auto) 0.2 Baso # (Auto) 0.0 Abs Immat Gran (auto) 0.01 Absolute Neuts (auto) 3.1 Absolute Nucleated RBC 0.000 Nucleated RBC % (auto) 0.0 PT INR Sodium 145 Potassium 4.0 Chloride 106 Carbon Dioxide 31 H Anion Gap 12 BUN 11 Creatinine 0.95 Estim Creat Clear Calc 71.1 Estimated GFR > 60 Random Glucose 102 Calcium 9.3 Iron TIBC % Saturation Unsat Iron Binding Ferritin Total Bilirubin Direct Bilirubin AST ALT Alkaline Phosphatase Total Protein Albumin Vitamin B12 Urine Color Urine Appearance Urine pH Ur Specific [place] Urine Protein Urine Glucose (UA) Urine Ketones Urine Blood Urine Nitrite Ur Leukocyte Esterase Stool Occult Blood COVID-19 (FRANKO) COVID-19 Clin Com Airway Mallampati Class: II TM Dist: >3cm Neck ROM: Full Loose/Missing/Broken Teeth: No Heart: RRR Lungs: CTA Assessment and Plan Assessment Anesthesia Assessment: Anesthesia Plan Discussed and Chart Reviewed Final Anesthetic Review Family History of Problems with Anesthesia: No History of Problems with Anesthesia: No ASA Class: II Final Preanesthetic Review: No Changes in Pt Med Stat, Meds/Allgs Chart Reviewed, Consent Obtained/Reviewed and Anes Risks/Benef Reviewed Patient Risk: Intermediate Procedure Risk: Low Anesthetic Plan Anesthetic Plan: MAC: Disposition: Standard PACU
--- NOTE | 2022-09-29 09:32 | P.PNIM_ITS ---
Subjective Subjective Date of Service: 09/29/22 Interval History: Seen in follow up for radiation proctitis Interval history: Colonoscopy this am, completed prep. Still reporting BRBPR. Sl ight drop in H/H 11.1/32.1%. Iron studies, vitamin B12, folic acid normal. Still reporting mild right flank pain. No urinary issues, n/v, abd pain. VSS. Review of Systems Review of Systems: Yes all other systems are reviewed and are negative Physical Exam Vital Signs: Vital Signs: Last Vital Signs Temp 97.9 F 09/29/22 07:59 Pulse 55 09/29/22 07:59 Resp 18 09/29/22 07:59 BP 154/84 H 09/29/22 07:59 Pulse Ox 96 09/29/22 07:59 O2 Del Method Room Air 09/29/22 07:59 BMI result Body Mass Index 30.5 Constitutional - Awake and Alert, No apparent distress Eyes - PERRLA, EOMI Cardiovascular - S1S2, RRR, No edema Respiratory - Normal lung expansion, Normal respiratory effort, No respiratory distress, CTA bilaterally Gastrointestinal - NT / ND; +BS; No rebound or guarding Extremities - no calf tenderness bilaterally, no swelling Skin - Warm/Dry Neurological - Alert & oriented x3 Objective Data Active Medications Acetaminophen (Acetaminophen 325 Mg Tablet) 650 mg PO Q6H PRN PRN Reason: Pain, Mild (Pain Scale 1-3) Amlodipine Besylate (Amlodipine Besylate 5 Mg Tablet) 5 mg PO DAILY [facility] Last Admin: 09/29/22 08:32 Dose: Not Given Documented By: KISHOR Non-Admin Reason: Physician Held Med Atorvastatin Calcium (Atorvastatin Calcium 10 Mg Tablet) 10 mg PO DAILY [facility] Last Admin: 09/29/22 08:32 Dose: Not Given Documented By: KISHOR Non-Admin Reason: Physician Held Med Docusate Sodium (Docusate Sodium 100 Mg Capsule) 100 mg PO DAILY PRN PRN Reason: Constipation Lidocaine (Lidocaine 4 % Patch Adh..Patch) 1 patch TRANSDERMA DAILY [facility]; Protocol Last Admin: 09/29/22 08:20 Dose: Not Given Documented By: KISHOR Non-Admin Reason: Patient Refused Lisinopril (Lisinopril 10 Mg Tablet) 10 mg PO DAILY [facility] Last Admin: 09/29/22 08:32 Dose: Not Given Documented By: KISHOR Non-Admin Reason: Physician Held Med Multivitamins/Vitamin C (Multivitamin Tablet) 1 tab PO DAILY [facility] Last Admin: 09/29/22 08:20 Dose: Not Given Documented By: KISHOR Non-Admin Reason: Patient Refused Ondansetron HCl (Ondansetron Hcl 4 Mg/2 Ml Vial) 4 mg IVPUSH Q8H PRN PRN Reason: Nausea and Vomiting Pharmacy Consult (Consult Rx Perform Med Rec) 1 each MISCELLANE ONCE PRN PRN Reason: Consult order Sodium Chloride (0.9 % Sodium Chloride Flush 3 Ml Syringe) 3 ml IVFLUSH QSHIFT [facility] Last Admin: 09/29/22 07:14 Dose: Not Given Documented By: KISHOR Non-Admin Reason: See Note Labs 09/29/22 05:44 09/29/22 05:44 Labs: Laboratory Results - last 24 hr 09/28/22 09/28/22 09/28/22 08:35 09:34 10:39 MCV MCH MCHC RDW Plt Count MPV Immature Gran % (Auto) Neut % (Auto) Lymph % (Auto) [place] % (Auto) Eos % (Auto) Baso % (Auto) Lymph # (Auto) [place] # (Auto) Eos # (Auto) Baso # (Auto) Abs Immat Gran (auto) Absolute Neuts (auto) Absolute Nucleated RBC Nucleated RBC % (auto) Anion Gap Estim Creat Clear Calc Estimated GFR Random Glucose Calcium Iron 102 TIBC 280 % Saturation 36 Unsat Iron Binding 178 Ferritin 125 Vitamin B12 408 Urine Color Yellow Urine Appearance Clear Urine pH 7.5 Ur Specific [place] <= 1.005 Urine Protein Negative Urine Glucose (UA) Negative Urine Ketones Negative Urine Blood Negative Urine Nitrite Negative Ur Leukocyte Esterase Negative COVID-19 (FRANKO) Negative COVID-19 Clin Com See Note 09/29/22 09/29/22 05:44 05:44 MCV 90.9 MCH 31.4 MCHC 34.6 RDW 12.6 Plt Count 152 L MPV 9.7 Immature Gran % (Auto) 0.2 Neut % (Auto) 68.8 Lymph % (Auto) 13.4 L [place] % (Auto) 13.6 H Eos % (Auto) 3.6 Baso % (Auto) 0.4 Lymph # (Auto) 0.6 L [place] # (Auto) 0.6 Eos # (Auto) 0.2 Baso # (Auto) 0.0 Abs Immat Gran (auto) 0.01 Absolute Neuts (auto) 3.1 Absolute Nucleated RBC 0.000 Nucleated RBC % (auto) 0.0 Anion Gap 12 Estim Creat Clear Calc 71.1 Estimated GFR > 60 Random Glucose 102 Calcium 9.3 Iron TIBC % Saturation Unsat Iron Binding Ferritin Vitamin B12 Urine Color Urine Appearance Urine pH Ur Specific [place] Urine Protein Urine Glucose (UA) Urine Ketones Urine Blood Urine Nitrite Ur Leukocyte Esterase COVID-19 (FRANKO) COVID-19 Clin Com Assessment and Plan (1) Acute radiation proctitis: Status: Acute (2) Rectal bleeding: Status: Acute Plan 72-year-old male with history of hyperlipidemia, hypertension, and history of prostate cancer treated with radiation x8 weeks in 09/2021 to be observed for radiation proctitis. #BRBPR with right flank pain- suspect acute radiation proctitis -hx prostate cancer treated with 40 session radiation 09/2021 -H/H with slight decrease to 11.1/32.1, above transfusion threshold -Appreciate GI input -Colonoscopy this am- report pending -Lidocaine patch for right flank pain. Consider gabapentin if needed -Follow CBC #Acute blood loss anemia, unclear if chronic at this time -As above -Iron studies, vitamin b12, folic acid normal #HTN-reasonably controlled -Continue home meds #HLD -continue statin DVT? prophylaxis- SCPs Full code Time Spent With Patient Time: Total time managing care of this patient today ____ minutes. Quality Stroke Does the patient have a stroke diagnosis?: No VTE Prior VTE?: No VTE Risk Level:: Medical - moderate - high VTE Device Contraindication: N/A - Device Ordered VTE Drug Contraindication: Treatment Not Indicated
--- NOTE | 2022-09-29 09:34 | MHC.SHP ---
Pre-Procedural Eval Section A Date of Service: 09/29/22 The patient is an INPATIENT: Yes The History & Physical has been completed within 30 days and I have reviewed it.: Yes Section B Chief Complaint: radiation proctitis Allergies: Allergies Allergy/AdvReac Type Severity Reaction Status Date / Time No Known Allergies Allergy Verified 09/28/22 07:29 Plan I have reviewed the history and physical and performed a pertinent physical examination on my patient. No changes have occurred unless specified. Time Spent With Patient Time: Total time managing care of this patient today ____ minutes.
--- NOTE | 2022-09-29 09:34 | W.PM.OPN ---
Operative Note Operative Note Date of Service: 09/29/22 Narrative: Operative Information Procedure Description: Colonoscopy Indication: rectal bleeding, proctitis Anesthesia: MAC COLONOSCOPY Instrument: Olympus variable stiffness pediatric scope 190L Colonoscopy Monitoring: Vital signs and clinical assessment, continuous EKG monitoring, Pulse oximetry, Carbon Dioxide monitoring and blood pressure monitoring were done throughout the procedure. Colon withdrawal time was 14 minutes. Procedure: The patient was placed in the left lateral decubitis position and pre-procedure medications were administered. After a digital rectal examination of the ano-rectum, the video colonoscope was inserted into the rectum and advanced through the colon to the cecum/TI. The colonoscope was slowly withdrawn in a retrograde panoramic fashion and the colon mucosa was carefully examined including a retroflexed view of the rectum. Findings and interventions are described below. Procedure Difficulty: easy Findings: Terminal Ileum-normal Severe diverticulosis thru out the colon, worse on the left side Cecum:normal Ascending Colon: diverticulosis Transverse Colon - diverticulosis Descending Colon: diverticulosis Sigmoid Colon: severe diverticulosis with luminal narrowing, Rectum: Retroflexion with medium sized internal hemorrhoids, grade I, moderate severe friable mucosal tissue in distal and mid rectum consistent with radiation proctopathy, bx taken and then treated with APC at 20 W with hemospray then applied Anorectum - normal Colon preparation: Grubbs Bowel Preparation Scale Right colon; 2 Transverse colon: 2 Left colon; 2 (0 = Unprepared colon segment with mucosa not seen due to solid stool that cannot be cleared. 1 = Portion of mucosa of the colon segment seen, but other areas of the colon segment not well seen due to staining, residual stool and/or opaque liquid. 2 = Minor amount of residual staining, small fragments of stool and/or opaque liquid, but mucosa of colon segment seen well. 3 = Entire mucosa of colon segment seen well with no residual staining, small fragments of stool or opaque liquid) Impression and Post Procedure Diagnosis: internal hemorrhoids diverticular disease Radiation proctopathy (RAVE) Plan: High fiber diet leaflet Avoid straining at stool, epsom salts and sitz bath, anusol supps or cream Repeat Colonoscopy as needed for APC, meantime would d/c home on 2 weeks of proctofoam,BID Above findings were reviewed with the patient and relevant handouts were provided if indicated.
[2022-09-29 10:15] VITALS: BP 104/51; PULSE 68; RESP 15; TEMP 37.1; O2SAT 98
[2022-09-29] MEDS: Acetaminophen 325 MG TABLET 650 MG PO (10:27)
[2022-09-29 10:30] VITALS: BP 138/56; PULSE 62; RESP 14; TEMP 36.6; O2SAT 99
[2022-09-29 11:20] VITALS: BP 176/94; PULSE 58; RESP 18; TEMP 36.7; O2SAT 97
[2022-09-29] MEDS: lisinopriL 10 MG TABLET PO (11:32)
[2022-09-29] MEDS: Atorvastatin Calcium 10 MG TABLET PO (11:32)
[2022-09-29] MEDS: amLODIPine Besylate 5 MG TABLET PO (11:32)
--- NOTE | 2022-09-29 11:35 | P.DS_ITS ---
DS: Providers Provider Date of Service: 09/29/22 Date of admission: 09/28/22 12:08 Date of discharge: 09/29/22 Primary care physician: Farhad Delacruz MD Admitting clinician: Rehana Rodrigues Attending physician on admission: [facility] Consults: 09/28/22 11:55 Consult to Gastroenterology Routine Consulting Provider: Kika Judd Reason for consultation: radiation proctitis Attending physician on discharge: [facility] Discharging clinician: Rehana Rodrigues DS: Diagnosis Discharge Diagnosis (1) Acute radiation proctitis: Status: Acute (2) Rectal bleeding: Status: Acute DS: Summary Hospital Course Hospital Course: HPI on admission 09/27: 72-year-old male with history of hyperlipidemia, hypertension, and history of prostate cancer treated with radiation x8 weeks in 09/2021 presenting to the ED for evaluation of severe right flank pain ongoing for 3 weeks.? States the pain was initially intermittent but has now become more constant and worsens with movement.? At rest, pain is about a 4 /10, but with movement it is a 9/10.? Denies any rash.? He states at onset of pain, he also began experiencing bright red blood per rectum.? States initially was experiencing gerry blood but now notes maroon stool and blood tinged water in the toilet.? He did have colonoscopy in 07/2021 which was negative except for internal hemorrhoids and diverticulosis.? He states he saw his urologist and oncologist who feel the pain and blood could be related to radiation proctitis. He reports bowel movements are soft.? Denies any fevers, chills, abdominal pain, nausea, vomiting, diarrhea, constipation, straining, rectal pain/ pressure, or tenesmus. On arrival, patient hypertensive to 170/85, improved to 158/84, vitals otherwise normal. ? No leukocytosis.? H/ H 11.9/35.2% (4/6 at [facility] H/H? 12.7/38.7%).? renal function? and electrolyte levels normal.? Urinalysis unremarkable.? Stool occult? blood positive.? CT abdomen/ pelvis showing question of mild diffuse rectal wall thickening, mild induration of surrounding fat, and mild hyperva scularity of the rectal mucosa.? Cannot exclude proctitis.? There was also extensive, diffuse colonic diverticulosis without evidence of diverticulitis and mildly enlarged prostate with prostatic fiduciary markers. ED provider discussed case with gastroenterology who is recommending admission with colonoscopy tomorrow. Hospital course: Hospital course uneventful. Evaluated by gastroenterology and colonoscopy prep with golytely initiated last night Slight drop in H/H to 11.1/32.1% following prep with small amount of BRBPR. Colonoscopy this am noting grade I internal hemorrhoids with moderate friable mucosal tissue in the distal and mid rectum consistent with radiation proctopathy, and severe extensive diverticulosis throughout the colon with luminal narrowing. Biopsy taken and results pending. Diet was advanced post-operatively with good tolerance. Vital stable throughout admission. Patient should follow up with gastroenterology in 2 weeks and use proctofoam BID x 2 weeks. Follow up with urology and oncology as scheduled and follow up with PCP soon. Advised to limit the use of NSAIDs and counseled on high fiber diet. Status at Discharge Functional status at discharge: independent ambulation Overall status at discharge: patient is progressing back to baseline Time Spent with Patient Time attestation: Total time managing care of this patient today ____ minutes. Discharge coordination time: Greater than 30 minutes Quality: Safe Use of Opioids Does Pt have an Active Cancer Diagnosis on the Problem List?: Yes Opioid Measure Date for [facility] Report: 08/30/22 Opioid Measure Time for [facility] Report: 11:41 Quality: Stroke Does the patient have a stroke diagnosis?: No Physical Exam Vital Signs: Vital Signs: Last Vital Signs Temp 98.0 F 09/29/22 11:20 Pulse 58 09/29/22 11:20 Resp 18 09/29/22 11:20 BP 176/94 H 09/29/22 11:20 Pulse Ox 97 09/29/22 11:20 O2 Del Method Room Air 09/29/22 11:20 BMI result Body Mass Index 30.5 Constitutional - Awake and Alert, No apparent distress Eyes - PERRLA, EOMI Cardiovascular - S1S2, RRR, No edema Respiratory - Normal lung expansion, Normal respiratory effort, No respiratory distress, CTA bilaterally Gastrointestinal - NT / ND; +BS; No rebound or guarding Extremities - no calf tenderness bilaterally, no swelling Skin - Warm/Dry Neurological - Alert & oriented x3 Psychological - Appropriate affect DS: Data Data Completed and Pending Pending studies at discharge: Pending at discharge 09/29/22 09:53 Surgical [PTH] Routine Labs on day of discharge: Laboratory Results - last 24 hr 09/28/22 09/29/22 09/29/22 08:35 05:44 05:44 WBC 4.5 L RBC 3.53 L Hgb 11.1 L Hct 32.1 L MCV 90.9 MCH 31.4 MCHC 34.6 RDW 12.6 Plt Count 152 L MPV 9.7 Immature Gran % (Auto) 0.2 Neut % (Auto) 68.8 Lymph % (Auto) 13.4 L [place] % (Auto) 13.6 H Eos % (Auto) 3.6 Baso % (Auto) 0.4 Lymph # (Auto) 0.6 L [place] # (Auto) 0.6 Eos # (Auto) 0.2 Baso # (Auto) 0.0 Abs Immat Gran (auto) 0.01 Absolute Neuts (auto) 3.1 Absolute Nucleated RBC 0.000 Nucleated RBC % (auto) 0.0 Sodium 145 Potassium 4.0 Chloride 106 Carbon Dioxide 31 H Anion Gap 12 BUN 11 Creatinine 0.95 Estim Creat Clear Calc 71.1 Estimated GFR > 60 Random Glucose 102 Calcium 9.3 Iron 102 TIBC 280 % Saturation 36 Unsat Iron Binding 178 Ferritin 125 Vitamin B12 408 Discharge Plan Discharge Anticipated Discharge Date/Time: 09/29/22 11:23 Patient Disposition: Home, Self-Care Referrals: Farhad Delacruz MD [Primary Care Provider] - 1 Week Kika Judd MD [Physician] - 2 Weeks Discharge Medications: New pramoxine [Proctofoam] 1 % foam 1 appl AR BID 14 Days Qty: 15 1RF Continued atorvastatin 10 mg tablet 1 tab PO DAILY multivitamin Tablet 1 tab PO DAILY amlodipine-benazepril 5-10 mg capsule 1 cap PO DAILY Discharge Orders: Discharge Order (Routine); Ordered 09/29/22 Ordered By: Rehana Rodrigues Diet: High fiber diet Activity on Discharge: As tolerated Stand Alone Forms: Patient Portal Discharge page Care Plan Goals: see below Health Concerns: Radiation proctitis Plan of Treatment: Radiation proctitis -following 40 rounds of radiation for prostate cancer last year -CT and colonoscopy identifying diagnosis. Your blood counts are stable overall and you do did not require any transfusion -Your colonoscopy also showed internal hemorrhoids and diverticulosis (pouches along the colon) both of which can also be a source of rectal bleeding -Recommend using proctofoam twice daily x 2 weeks for inflammation and rectal bleeding -Follow a high fiber diet for management of diverticulosis -Follow up with GI in 1-2 weeks and PCP soon. Continue following with urology and oncology as advised -Can continue use of lidocaine patches and tylenol for pain but would limit the use of NSAIDs at this time Assessment: As above Patient Instructions: Proctitis (DC), Diverticulosis (DC), Diverticulosis Diet (GEN)
--- NOTE | 2022-09-29 12:24 | MHC.CM.PN ---
pt dcd home no skilled servceis ordered by
== END 2022-09-29 12:16 | disposition home or self-care (01) ==
LOC: HO.ED 11:14 → HO.S3 12:10
PROVIDERS: Internal Medicine Gastroenterology; Nurse Practitioner Family; Admitting Provider Physician Assistant; Emergency Provider Emergency Medicine; PCP Internal Medicine; Visit Provider Physician Assistant
PROC: 0DJD8ZZ Inspection of Lower Intestinal Tract, Via Natural or Artificial Opening Endoscopic (ICD-10-PCS; CPT 45378; principal; 2022-09-29 09:00)
DX: K62.7 Radiation proctitis (principal); W88.8XXA Exposure to other ionizing radiation, initial encounter; Y84.8 Other medical procedures as the cause of abnormal reaction of the patient, or of later complication, without mention of misadventure at the time of the procedure; C61 Malignant neoplasm of prostate; K62.5 Hemorrhage of anus and rectum; K62.89 Other specified diseases of anus and rectum; M54.50 Low back pain, unspecified; E78.5 Hyperlipidemia, unspecified; I10 Essential (primary) hypertension; C67.9 Malignant neoplasm of bladder, unspecified; Z79.60 Long term (current) use of unspecified immunomodulators and immunosuppressants; Z20.822 Contact with and (suspected) exposure to COVID-19
CPT/HCPCS: 45380; 36415; 74178; 80048; 80076; 81003; 82272; 82607; 82728; 83540; 85025; 85610; 87635; 88305; 99221; 99285; Q9967

== ENCOUNTER 2022-11-20 13:38 | Day surgery (SDC) | payer MEDICARE, OTHER, SELFPAY ==
--- NOTE | 2022-11-19 12:26 | P.CONAN_ITS ---
Documented by User: Mary Pool NP 11/19/22 12:26 HPI - Anesthesia Eval Consult details Narrative: 72yo M for Sigmoidoscopy Flexible wit APC s/p [place] APC 09/28/22 with MAC PMFSH Active Problems Active Problems: All Active Problems (Updated 09/28/22 @ 12:13 by JADEN Bians) Acute radiation proctitis (Acute) Rectal bleeding (Acute) Superficial burn of left forearm (Acute) Past Medical History Medical History Hernia HTN (hypertension) Hyperlipidemia Prostate cancer Family History Family history of problems with anesthesia: No Surgical History Surgical History History of knee replacement, total Hx of colonoscopy History of Problems with Anesthesia: No Social History Social History Household Members: Spouse Housing: House Do you presently have visiting nurse or other home services: No Alcohol intake: current Alcohol intake frequency: 0-2 drinks per day Alcohol type: wine Patient Tobacco Use Status: Never used Tobacco Use of substances other than those prescribed or required for medical reasons: No Are you DNR?: No Advance Directives: No Advance Directives Information Provided: Yes service: No Meds Allergies Allergy/AdvReac Type Severity Reaction Status Date / Time No Known Allergies Allergy Verified 09/28/22 07:29 Home Medications Medication Instructions Recorded Confirmed Last Taken Type atorvastatin 10 mg tablet 1 tab PO DAILY 07/12/21 09/28/22 09/28/22 History amlodipine 5 mg-benazepril 10 mg 1 cap PO DAILY 04/10/22 09/28/22 11/20/22 07:00 History capsule multivitamin 1 tab PO DAILY 09/28/22 09/28/22 09/28/22 History tamsulosin 0.4 mg capsule 0.4 mg PO BEDTIME 11/20/22 11/20/22 Unknown History Exam Exam Date and Time: November 19, 2022 1226 Narrative Narrative: EKG 09/2022 NSR @ 63 Minimal criteria for LVH Non-specific T wave abn Assessment and Plan Assessment Anesthesia Assessment: Chart Reviewed Final Anesthetic Review Family History of Problems with Anesthesia: No History of Problems with Anesthesia: No Documented by User: Mimi Burgess MD 11/20/22 15:01 PMFSH Past Medical History Medical History Hernia HTN (hypertension) Hyperlipidemia Prostate cancer Surgical History Surgical History History of knee replacement, total Hx of colonoscopy Social History Social History Household Members: Spouse Housing: House Do you presently have visiting nurse or other home services: No Alcohol intake: current Alcohol intake frequency: 0-2 drinks per day Alcohol type: wine Patient Tobacco Use Status: Never used Tobacco Use of substances other than those prescribed or required for medical reasons: No Are you DNR?: No Advance Directives: No Advance Directives Information Provided: Yes service: No Meds Allergies Allergy/AdvReac Type Severity Reaction Status Date / Time No Known Allergies Allergy Verified 09/28/22 07:29 Home Medications Medication Instructions Recorded Confirmed Last Taken Type atorvastatin 10 mg tablet 1 tab PO DAILY 07/12/21 09/28/22 09/28/22 History amlodipine 5 mg-benazepril 10 mg 1 cap PO DAILY 04/10/22 09/28/22 11/20/22 07:00 History capsule multivitamin 1 tab PO DAILY 09/28/22 09/28/22 09/28/22 History tamsulosin 0.4 mg capsule 0.4 mg PO BEDTIME 11/20/22 11/20/22 Unknown History Exam Airway Mallampati Class: II TM Dist: >3cm Neck ROM: Full Partial: Upper (permanent left lower) Heart: rrr Lungs: cta Assessment and Plan Assessment Anesthesia Assessment: Anesthesia Plan Discussed Final Anesthetic Review NPO: Yes ASA Class: II Final Preanesthetic Review: No Changes in Pt Med Stat, Meds/Allgs Chart Reviewed and Consent Obtained/Reviewed Patient Risk: Intermediate Procedure Risk: Intermediate Anesthetic Plan Anesthetic Plan: MAC: Disposition: Standard PACU
[2022-11-20 13:50] VITALS: BMI 31.5
[2022-11-20] MEDS: Lactated Ringers 1,000 ML 100 ML IVCONT (14:17)
[2022-11-20 14:19] VITALS: BP 155/75; PULSE 62; RESP 20; TEMP 36.1; O2SAT 99
--- NOTE | 2022-11-20 14:54 | MHC.SHP ---
Pre-Procedural Eval Section A Date of Service: 11/20/22 Section B Chief Complaint: Radiation proctitis,hemorrhoids,diverticulosis Relevant Family History (Specify if Yes): No Relevant Social History: Other (specify) Present Medications: see Short Stay Collaborative assessment Medical History: Significant History (Hernia HTN (hypertension) Hyperlipidemia Prostate cancer) History of Previous Operations: Relevant previous surgery/procedure and date(s) (History of knee replacement, total Hx of colonoscopy) Allergies: Allergies Allergy/AdvReac Type Severity Reaction Status Date / Time No Known Allergies Allergy Verified 09/28/22 07:29 Review of Systems Sugical H&P ROS: Negative: Constitution, Cardiovascular, Respiratory, Neurological, Psychiatric, Hem-Onc, Allergic/Immunologic, Gastrointestinal, Genitourinary, Musculoskeletal, Integumentary, Endocrine and Eyes/Ears/Nose/Throat Exam Surgical H&P Exam: Normal: HEENT, Normal: Heart, Normal: Lungs, Normal: Extremities, Normal: Abdomen, Normal: Skin and Normal: Neurological Plan Diagnosis/Plan: Unchanged I have reviewed the history and physical and performed a pertinent physical examination on my patient. No changes have occurred unless specified. Time Spent With Patient Time: Total time managing care of this patient today ____ minutes.
--- NOTE | 2022-11-20 15:55 | W.PM.OPN ---
Operative Note Operative Note Date of Service: 11/20/22 Narrative: Operative Information Procedure Description: sigmoidoscopy Indication: rectal bleeding Anesthesia: MAC Sigmoidoscopy Instrument: Upper endoscope Colonoscopy Monitoring: Vital signs and clinical assessment, continuous EKG monitoring, Pulse oximetry, Carbon Dioxide monitoring and blood pressure monitoring were done throughout the procedure. Procedure: The patient was placed in the left lateral decubitis position and pre-procedure medications were administered. After a digital rectal examination of the ano-rectum, the video colonoscope was inserted into the rectum and advanced through the colon to the sigmoid colon. The scope was slowly withdrawn in a retrograde panoramic fashion and the colon mucosa was carefully examined. Findings and interventions are described below. Procedure Difficulty: easy Findings: Sigmoid Colon: normal Rectum: Active bleeding and areas of bleeding noted in the distal rectum, with clots. The area was cleaned and then injected with methylene blue using ERBE jet to effect 40 and then treated with APC 40 W. Bleeding mostly had ceased, hemospray was then applied and the scope withdrawn. Anorectum - normal Colon preparation: good Impression and Post Procedure Diagnosis: radiation proctopathy Plan: recommend anusol or similar topical application BID for 4 weeks. Above findings were reviewed with the patient and relevant handouts were provided if indicated.
[2022-11-20 16:00] VITALS: BP 138/75; PULSE 59; RESP 16; TEMP 36.1; O2SAT 98
[2022-11-20 16:15] VITALS: BP 142/83; PULSE 65; RESP 14; TEMP 36.1; O2SAT 99
[2022-11-20 16:30] VITALS: BP 155/71; PULSE 61; RESP 14; TEMP 36.8; O2SAT 99
[2022-11-20] MEDS: Acetaminophen 325 MG TABLET 975 MG PO (16:31)
== END 2022-11-20 16:47 | disposition home or self-care (01) ==
PROVIDERS: PCP Internal Medicine; Visit Provider Internal Medicine Gastroenterology
PROC: 0DJD8ZZ Inspection of Lower Intestinal Tract, Via Natural or Artificial Opening Endoscopic (ICD-10-PCS; CPT 45330; principal; 2022-11-20 15:20)
DX: K62.5 Hemorrhage of anus and rectum (principal); K62.7 Radiation proctitis; Y84.2 Radiological procedure and radiotherapy as the cause of abnormal reaction of the patient, or of later complication, without mention of misadventure at the time of the procedure; Y78.1 Therapeutic (nonsurgical) and rehabilitative radiological devices associated with adverse incidents; Y92.9 Unspecified place or not applicable; K64.8 Other hemorrhoids; Z85.46 Personal history of malignant neoplasm of prostate; K57.10 Diverticulosis of small intestine without perforation or abscess without bleeding; I10 Essential (primary) hypertension; E78.5 Hyperlipidemia, unspecified; Z79.899 Other long term (current) drug therapy
CPT/HCPCS: 45334; C2618; Q9968

== ENCOUNTER → 2022-12-09 14:09 | Outpatient (BNVA) | payer MEDICARE, OTHER, SELFPAY | PROVIDERS: PCP Internal Medicine; Visit Provider Internal Medicine Gastroenterology | DX: K62.7 Radiation proctitis (principal); K62.5 Hemorrhage of anus and rectum | CPT/HCPCS: 99212 ==

== ENCOUNTER 2023-08-15 11:10 | Outpatient (AMB) | payer MEDICARE, OTHER, SELFPAY ==
--- NOTE | 2023-08-15 11:13 | MHC.OFFVIS ---
Intake Vital Signs 08/15/23 11:18 Height 5 ft 6 in Weight 196 lb 3.382 oz BMI 31.7 BP 141/65 H Blood Pressure Location Lt brachial Position Sitting Pulse 78 Intake Visit Reasons: F/U rectal Bleeding Intake Note: Jc presents in the office as a follow up to his rectal bleeding. CC: HE states that he is bleeding when he has a BM. HE has not been using the suppository and he feels like he should start on that again. He states he is not having constipation - he takes metamucil once a day. No stomach pains. HE states that he has been taking iron daily seems his labs were low on iron. Social Service Director Required: No Allergies No Known Allergies Allergy (Verified 08/15/23 11:18) HPI F/U rectal Bleeding HPI Details 73 yr old m here for f/u He has hx of radiation proctitis (confirmed on bx) x 2 procedures with hybrid APC and also given suppositories INTERIM: He has been having some mild rectal bleeding, v occasional he had some labs and mild iron def anemia no abdominal pain normal bowel habits takes metamucil EXAM: GENERAL: The patient is well developed and nontoxic. VITAL SIGNS:see workflow HEENT: Nonicteric sclerae, PERRLA, EOMI. Oropharynx clear. Moist mucous membranes. Conjunctivae appear well perfused. No thyroid mass. CHEST: Chest wall is nontender. HEART: Regular rate and rhythm without murmurs. LUNGS: Clear to auscultation bilaterally. ABDOMEN: Soft, positive bowel sounds, nontender, no organomegaly.no flank tenderness SKIN: No rash, no excessive bruising, petechiae, or purpura. NEUROLOGIC: Cranial nerves II-XII intact without motor/sensory deficit. Psych; nml A/P: 1/ Radiatioctitis, biopsy proven, s/p hybrid APC PLAN: 1/ He was given option of rept APC but he wants to retry mesalamine supps first PFSH Medical History Prostate cancer HTN (hypertension) Hernia Hyperlipidemia Surgical History History of knee replacement, total Hx of colonoscopy Family History Mother Lung cancer Social History Household Members: Spouse Housing: House Do you presently have visiting nurse or other home services: No Alcohol intake: current Alcohol intake frequency: 0-2 drinks per day Alcohol type: wine Patient Tobacco Use Status: Never used Tobacco service: No Physical Exam Vital Signs: Last Vital Signs Pulse 78 08/15/23 11:18 BP 141/65 H 08/15/23 11:18 BMI result Body Mass Index 31.7 Assessment & Plan Assessment & Plan (1) Acute radiation proctitis: Code(s): K62.7 - Radiation proctitis Plan: see above (2) Rectal bleeding: Code(s): K62.5 - Hemorrhage of anus and rectum Plan: see above Coding Level of Care Code Est Pt Level 3 (81895) Diagnoses Acute radiation proctitis K62.7 Rectal bleeding K62.5
[2023-08-15 11:18] VITALS: BP 141/65; PULSE 78; BMI 31.7
== END 2023-08-15 12:16 | disposition home or self-care (01) ==
PROVIDERS: PCP Internal Medicine; Visit Provider Internal Medicine Gastroenterology
DX: K62.7 Radiation proctitis (principal); K62.5 Hemorrhage of anus and rectum
CPT/HCPCS: 99213

== ENCOUNTER → 2023-08-15 11:10 | Outpatient (BNVA) | payer MEDICARE, OTHER, SELFPAY | PROVIDERS: PCP Internal Medicine; Visit Provider Internal Medicine Gastroenterology | DX: K62.7 Radiation proctitis (principal); K62.5 Hemorrhage of anus and rectum | CPT/HCPCS: 99212 ==